=== PATIENT | male | born 1955 | race Caucasian/White ===

== ENCOUNTER → 2019-06-11 11:40 | Outpatient (CLI) | payer MEDICARE, OTHER, SELFPAY ==
[2019-01-01 14:53] VITALS: BMI 33.1
[2019-06-11 12:57] LABS: EST Glomerular Filtration Rate 71 mL/min (>60); Est Glom Filt Rate - Afr Amer 86 mL/min (>60)
== END ==
PROVIDERS: Family Provider Preventive Medicine Occupational Medicine; PCP Preventive Medicine Occupational Medicine; Referring Provider Nurse Practitioner Adult Health; Visit Provider Nurse Practitioner Adult Health
DX: R79.89 Other specified abnormal findings of blood chemistry (principal); N20.0 Calculus of kidney
CPT/HCPCS: 36415; 82565

== ENCOUNTER 2019-12-01 11:56 | Emergency (ER) | payer MEDICARE, OTHER, SELFPAY ==
[2019-01-01 14:53] VITALS: BMI 33.1
[2019-12-01 11:57] VITALS: BP 133/72; PULSE 51; RESP 16; TEMP 36.7; O2SAT 96; BMI 29.9
--- NOTE | 2019-12-01 12:28 | ED.VISSUMM ---
- ER Visit Summary Date of Service: 12/01/19 Chief Complaint: Laceration History of Present Illness: The patient is a [address] Hernández. Patient reports that just prior to coming emergency department he cut the left middle finger with a utility knife while working at home. He denies any pain or paresthesias. His tetanus is up-to-date. Physical Examination: Vitals: Stable. Afebrile. General: Well-nourished and well-developed. Head: Normocephalic atraumatic. Neck: Supple, no lymphadenopathy. No JVD. Nontender. Cardiovascular: Regular rate and rhythm. No murmurs. Respiratory: No respiratory distress. Clear to auscultation bilaterally. Abdominal: Soft, nontender, nondistended, normal bowel sounds. No guarding, rebound, or peritoneal signs. Back: Nontender. Extremities: Left middle finger has a 1.5 cm laceration on the medial side of the nail that extends onto the medial side of the skin as well. This is a flap. It is well opposed. There is no bleeding. He is neurovascular intact. Skin: Normal color, no rash. Neurologic: Alert and oriented ?3. Cranial nerves II through XII are intact. Normal strength and sensation. Psych: Normal affect. Emergency Department Course and Treatment: I discussed treatment options with the patient. He has opted to let this heal by secondary intention. He had a dressing placed. Treatment Plan: Patient will be discharged with instructions to follow-up with his primary care physician in 1 week if not improving. Is instructed to keep the area clean and covered. Return to emerge part for any signs of infection. Disposition: To home in improved and stable condition. Impression: 1. Laceration left middle finger, 1.5 cm, not repaired. This note was generated with [employer] dictation software. It may contain incorrect words, spelling, and punctuation that were not noted in review of the chart prior to signing ED Disposition - Plan for ED Patient: Disposition: Home or Assisted Living Instructions: LACERATION, Small/superficial, Not sutured Referrals: Alexi Valladares DO [Primary Care Provider] - 1 Week if not improving
[2019-12-01 12:50] VITALS: BP 119/77; PULSE 64; RESP 18
== END 2019-12-01 12:51 | disposition home or self-care (01) ==
LOC: ED 12:13
PROVIDERS: Emergency Provider Emergency Medicine; PCP Preventive Medicine Occupational Medicine
DX: S61.213A Laceration without foreign body of left middle finger without damage to nail, initial encounter (principal); W26.0XXA Contact with knife, initial encounter
CPT/HCPCS: 99283

== ENCOUNTER 2020-09-16 21:36 | Emergency (ER) | payer MEDICARE, OTHER, SELFPAY ==
[2020-09-16 21:36] VITALS: BP 148/96; PULSE 72; RESP 16; TEMP 36.2; O2SAT 100; BMI 30.5
[2020-09-16 22:33] LABS: Bacteria 0 SEEN /hpf (None Seen); Mucous, Urine 0 SEEN /hpf (<or=2+); Squamous Epithelial Cells - UA 0 SEEN /hpf (0-5)
--- NOTE | 2020-09-16 22:36 | CT_ITS ---
STUDY: CT ABDOMEN AND PELVIS WITHOUT CONTRAST REASON FOR EXAM: Male, 65 years old. LT GROIN AND SCROTAL PAIN,DYSURIA,PT HAD HEMATURIA 1 WEEK AGO -- HX:KIDNEY STONES,HIATAL HERNIA REPAIR RADIATION DOSAGE (If Supplied By Facility): CTDIvol = ( 8.12 ) mGy, DLP = ( 464.81 ) mGycm TECHNIQUE: Transaxial images were obtained from the dome of the diaphragm to the symphysis pubis without oral contrast, and without intravenous contrast. Sagittal and coronal images were reconstructed. Individualized dose optimization techniques were used for this CT. COMPARISON: None. FINDINGS: Mild bibasilar atelectatic versus chronic changes. The visualized portions of the heart are within normal limits. Subcentimeter cyst of the superior liver. Otherwise normal liver. Normal gallbladder and extrahepatic biliary system. Normal spleen. Normal pancreas. Normal bilateral adrenal glands. Normal size of the right kidney. Multiple 1-4 mm nonobstructing stones of the right kidney without hydronephrosis however there is a 5 x 7 x 6 mm stone in the proximal ureter several centimeters below the ureteropelvic junction. In addition, there are 2 stones in the distal ureter below the iliac vessel crossing and above the ureterovesicular junction measuring 5 mm and 4 mm. There is mild hydronephrosis of the left kidney and a dilated ureter secondary to a 9 x 5 mm stone in the distal ureter just above the ureterovesicular junction. The urinary bladder is empty and contains no stones. There are multiple additional nonobstructing stones in the left kidney the largest stone is in the lower pole and measures 5 x 4 m. Moderate sized hiatal hernia. Otherwise unremarkable stomach. Normal small intestine. Diverticulosis of the colon without evidence of acute diverticulitis. The appendix is visualized and appears normal. Mild plaque of the aorta. Normal inferior vena cava. Normal retroperitoneum. Normal urinary bladder. Minimal fatty umbilical hernia and a small right fatty inguinal hernia and a minimal left inguinal hernia.. There are diffuse degenerative changes of the visualized lumbar spine. CT/Abdomen/Pelvis without Cont IMPRESSION: Multiple nonobstructing stones in the right kidney as described above. There is minimal or no hydronephrosis of the right kidney; however, there is a 5 x 7 x 6 mm stone in the proximal right ureter just below the ureteropelvic junction and there are at least 2 stones in the distal right ureter measuring 5 and 4 mm. There is mild hydronephrosis of the left kidney secondary to a 9 x 5 mm stone in the distal left ureter just above the ureterovesicular junction. There are multiple other nonobstructing stones of the left kidney, the largest of which is 5 x 4 mm in the lower pole. No other acute abdominal or pelvic findings. Moderate hiatal hernia. Diverticulosis. Mild atherosclerosis. Minimal fatty umbilical hernia and left inguinal hernia. Small fatty right inguinal hernia. Electronically Signed: Kiera Russell MD at 23:31 EST , Service support ,
[2020-09-16 22:42] LABS: Color, Urine Yellow (Yellow); Glucose, Dipstick Normal (Normal); Ketone-Dipstick 15 mg/dl (Negative); Leukocyte Esterase-Dipstick Negative /ul (Negative); Nitrite-Dipstick Negative (Negative); Occult Blood-Urine 250 /ul (Negative); Protein-Dipstick 30 mg/dl (Negative); Urine Bilirubin Dipstick Negative (Negative); Urine Clarity Clear (Clear); Urine Urobilinogen Normal (Normal)
[2020-09-16 22:44] LABS: Absolute Lymphocyte Count 0.96 X10^3/uL (0.83-4.51); Absolute Neutrophil Count 11.2 X10^3/uL (2.0-7.7); Basophil# 0.04 X10^3/uL; Basophil% 0.3 % (0-1); Eosinophil# 0.01 X10^3/uL; Eosinophils% 0.1 % (0-5); Hematocrit 46.5 % (40-54); Hemoglobin 15.5 g/dL (13.0-16.5); Lymphocyte # 0.96 X10^3/ul (4.0); Lymphocyte % 7.4 % (19-41); Mean Corp Hgb Conc 33.3 g/dL (32-36); Mean Corpuscular Hgb 30.1 pg (27.0-32.0); Mean Corpuscular Volume 90.3 fL (80-94); Monocyte# 0.65 X10^3/uL; NRBC Flagged by Analyzer 0 % (0-5); Neutrophil # 11.18 X10^3/uL (2.7-7.7); Neutrophil % 86.7 % (47-70); Platelet Count 226 K/mm3 (150-450); RBC Distribution Width SD 39.9 fl (35.1-43.9); Red Blood Count 5.15 M/mm3 (4.6-6.2); White Blood Count 12.9 K/mm3 (4.4-11.0)
[2020-09-16] MEDS: Ondansetron 4 MG/2 ML Vial IV (22:44)
[2020-09-16 22:47] LABS: Red Blood Cells-Urine > 100 SEEN /hpf (0-5)
[2020-09-16] MEDS: Morphine 4 MG/ML Syringe IV (22:47)
[2020-09-16 22:48] LABS: White Blood Cells 0-5 SEEN /hpf (0-5)
[2020-09-16 23:04] LABS: ALB/GLOB Ratio 1.5 RATIO (0.9-2.4); AST(SGOT) 17 U/L (15-37); Alanine Aminotransfer ALT/SGPT 18 U/L (16-61); Albumin, Serum 4.4 g/dL (3.2-5.0); Alkaline Phosphatase 81 U/L (45-117); Anion Gap 6 (5-15); BUN 24 mg/dL (7-18); BUN/Creat Ratio 13.6 RATIO (10-20); Calcium,Total 9.4 mg/dL (8.5-10.1); Chloride 107 mmol/L (98-107); Creatinine, Serum 1.77 mg/dL (0.70-1.30); EST Glomerular Filtration Rate 41 mL/min (>60); Est Glom Filt Rate - Afr Amer 50 mL/min (>60); Estimated Creatinine Clearance 37.86 ml/min; Glucose 158 mg/dL (74-106); Potassium 4.4 mmol/L (3.5-5.1); Protein, Total 7.4 g/dL (6.4-8.2); Sodium Level 141 mmol/L (136-145)
--- NOTE | 2020-09-16 23:19 | ED.DCSUM_ITS ---
- ER Visit Summary Date of Service: 09/16/20 Chief Complaint: Abdominal pain, decreased urination History of Present Illness: The patient is a 65 M who presents with abdominal pain and decreased urination. Been ongoing for 1 week. He has not had a fever. The pain is in the suprapubic area. It does not radiate. He also complains of some pain near the base of his penis. He did have some hematuria 1 week ago but now it is improved. He does have a history of kidney stones and feels that this could be the cause of it. He does not have a urologist that he sees currently. Physical Examination: Vital signs reviewed. HEENT exam unremarkable. Heart is regular rate and rhythm without murmurs. Lungs are clear to auscultation. Abdomen is soft with suprapubic tenderness to palpation. There is no guarding or rebound tenderness. Extremities reveal no edema. Skin exam normal. Neurologic exam normal. Test Results: White blood cell count 12.9, glucose 150, BUN 24, creatinine 1.77. Urinalysis shows greater than 100 red blood cells. CAT scan of the abdomen and pelvis shows a right proximal ureteral stone with no hydronephrosis along with other right renal stones. He also has a left distal ureteral stone with mild hydronephrosis. He also has left renal stones. Emergency Department Course and Treatment: Patient was given morphine and Zofran. His pain is mildly improved I gave him 1 dose of Toradol along with IV fluids. He states his pain is improving at this time. Feel he can be treated as an outpatient. I will give him Warwick and Flomax to take at home. I will give him urology follow-up as well. Treatment Plan: [] Disposition: Discharge Impression: Bilateral renal colic This note was generated with [employer] dictation software. It may contain incorrect words, spelling, and punctuation that were not noted in review of the chart prior to signing ED Disposition - Plan for ED Patient: Disposition: Home or Assisted Living Instructions: ED Renal Stone w Colic Prescriptions: Tamsulosin HCl [Flomax] 0.4 mg PO DAILY #7 cap Prescription Printed Hydrocodone Bitart/Apap 5-325 [Warwick 5MG-325MG] 1 tab PO Q6H PRN PRN 3 Days #10 tab PRN Reason: Pain Prescription Printed Referrals: Alexi Valladares DO [Primary Care Provider] -
[2020-09-16] MEDS: 0.9% Normal Saline 1,000 ML 999 ML IV (23:46)
[2020-09-16] MEDS: Ketorolac 15 MG/ML Vial IV (23:46)
[2020-09-17 01:09] VITALS: PULSE 86; RESP 16; O2SAT 98
== END 2020-09-17 01:10 | disposition home or self-care (01) ==
PROVIDERS: Emergency Provider Emergency Medicine; PCP Preventive Medicine Occupational Medicine
DX: N13.2 Hydronephrosis with renal and ureteral calculous obstruction (principal); Z87.442 Personal history of urinary calculi
CPT/HCPCS: 74176; 80053; 81001; 85025; 96361; 96374; 96375; 99283; J7030; A4216; J2405

== ENCOUNTER → 2020-10-01 14:41 | Outpatient (CLI) | payer MEDICARE, OTHER, SELFPAY ==
[2020-09-16 21:36] VITALS: BMI 30.5
--- NOTE | 2020-10-01 14:46 | RAD_ITS ---
STUDY: X-RAY - ABDOMEN/PELVIS REASON FOR EXAM: Male, 65 years old. BILATERAL KIDNEY STONES, PAINFUL URINATION TECHNIQUE: Single AP view of the abdomen / pelvis. COMPARISON: CT 09/16/2020 FINDINGS: Normal visualized lung bases. There is an unremarkable bowel gas pattern. There is no demonstrated free abdominal air. The kidneys are largely obscured by overlying bowel contents although small calcifications are partially identified.. There is a calcification in the right paraspinal soft tissues at L4-L5 measuring 6 mm that has mildly advanced since prior CT when it was positioned at L3. The left distal ureteral calculus as on prior foster winder topogram (medial to the left pelvic phleboliths) not clearly identified on the current exam. The distal right ureteral calculi evident on prior CT not clearly identified with similar appearing phleboliths comparing foster winder topogram with current exam. There are calcified phleboliths in the pelvis. Normal visualized osseous structures. RAD/Abdomen Single View IMPRESSION: 1. Mild advancement of right ureteral calculus, now at L4-L5 level. 2. Bilateral nephrolithiasis partially obscured by overlying bowel contents. 3. Distal bilateral ureteral calculi seen on prior CT are not clearly documented. Electronically Signed: Ricki Carrillo MD (Brooks) at 9:44 EST , Service support ,
[2020-10-01 15:53] LABS: Hematocrit 42.2 % (40-54); Hemoglobin 14.1 g/dL (13.0-16.5); Mean Corp Hgb Conc 33.4 g/dL (32-36); Mean Corpuscular Hgb 30.1 pg (27.0-32.0); Mean Platelet Vol. 8.9 fl (6.2-12.0); Platelet Count 278 K/mm3 (150-450); RBC Distribution Width CV 11.9 % (11.6-14.6); RBC Distribution Width SD 39.3 fl (35.1-43.9); Red Blood Count 4.69 M/mm3 (4.6-6.2); White Blood Count 9.2 K/mm3 (4.4-11.0)
[2020-10-01 16:20] LABS: Anion Gap 5 (5-15); BUN 23 mg/dL (7-18); BUN/Creat Ratio 17.3 RATIO (10-20); Chloride 110 mmol/L (98-107); Creatinine, Serum 1.33 mg/dL (0.70-1.30); EST Glomerular Filtration Rate 57 mL/min (>60); Est Glom Filt Rate - Afr Amer 69 mL/min (>60); Glucose 80 mg/dL (74-106); Potassium 4.3 mmol/L (3.5-5.1); Sodium Level 143 mmol/L (136-145)
== END ==
PROVIDERS: PCP Preventive Medicine Occupational Medicine; Referring Provider Nurse Practitioner Adult Health; Visit Provider Nurse Practitioner Adult Health
DX: Z01.812 Encounter for preprocedural laboratory examination (principal); N20.1 Calculus of ureter; N20.0 Calculus of kidney
CPT/HCPCS: 36415; 74018; 80048; 85027

== ENCOUNTER → 2020-10-02 11:57 | Outpatient (CLI) | payer MEDICARE, OTHER, SELFPAY ==
[2020-09-16 21:36] VITALS: BMI 30.5
--- NOTE | 2020-10-02 12:00 | EKG12_ITS ---
Test Reason : PRE OP Blood Pressure : / mmHG Vent. Rate : 071 BPM Atrial Rate : 071 BPM P-R Int : 160 ms QRS Dur : 084 ms QT Int : 394 ms P-R-T Axes : 045 013 026 degrees QTc Int : 428 ms Normal sinus rhythm Normal ECG Confirmed by CHAIM BARRAZA, CHUNG ([id number]), editorial intern ASTRID DEL ANGEL ([id number]) on 10/06/2020 3:32:45 PM Referred By: Larry Samuel Confirmed By:CHUNG RUCKER MD
== END ==
PROVIDERS: PCP Preventive Medicine Occupational Medicine; Referring Provider Urology; Visit Provider Urology
DX: Z01.812 Encounter for preprocedural laboratory examination (principal); Z11.59 Encounter for screening for other viral diseases
CPT/HCPCS: 87635; 93005; C9803; U0003

== ENCOUNTER → 2020-10-12 14:12 | Outpatient (CLI) | payer MEDICARE, OTHER, SELFPAY ==
[2020-09-16 21:36] VITALS: BMI 30.5
--- NOTE | 2020-10-12 14:20 | RAD_ITS ---
HISTORY: Pt. had surgery last Monday ADDITIONAL HISTORY: History of right ureteral calculus COMPARISON: None EXAMINATION/TECHNIQUE: XR Abdomen 1 View Number of images including paperwork: 2 FINDINGS: FREE AIR: None detected. BOWEL GAS PATTERN: Mild gaseous bowel distention without obstructive pattern apparent radiographically. Moderate amount of colonic stool. CALCIFICATIONS: No distinct urinary tract calculi, evaluation limited by overlying bowel content. Multiple pelvic phleboliths. ORGANS: No evidence of organomegaly. SOFT TISSUES: Unremarkable. BONES: No acute skeletal findings. Degenerative changes. LOWER CHEST: Unremarkable visible portions. DEVICES: Bilateral ureteral stents. RAD/Abdomen Single View IMPRESSION: Nonspecific bowel gas pattern. Bilateral ureteral stents. No distinct urinary tract calculi, evaluation limited by overlying bowel content. at 0759 Reported and signed by: Alka Carrillo MD Electronically Signed: Alka Carrillo MD at 7:59 EST Tel , Service support ,
== END ==
PROVIDERS: PCP Preventive Medicine Occupational Medicine; Referring Provider Nurse Practitioner Adult Health; Visit Provider Nurse Practitioner Adult Health
DX: N20.0 Calculus of kidney (principal)
CPT/HCPCS: 74018